=== PATIENT | female | born 1990 | race Caucasian/White ===

== ENCOUNTER 2017-04-26 13:04 | Inpatient (IN) | payer BC ==
[2017-04-26] VITALS (30 sets, daily range): BP systolic 118–154; BP diastolic 72–98; PULSE 65–109; TEMP 98–99.8
[~2017-04-26] VITALS: Ht 162.6 cm; Wt 77.7 kg
[2017-04-26] MEDS ORDERED: PRENATAL MVI PO (13:26)
[2017-04-26 14:53] LABS: BASO % 0.3 % (0.0-2.0); EOS % 0.3 % (0-4.0); GRAN # 9.1 (1.4-6.5); GRAN % 78.5 % (42.2-75.2); HEMOGLOBIN 12.3 g/dl (12.5-16.0); LYMPH # 1.7 (1.2-3.4); LYMPH % 14.5 % (20.0-51.0); MEAN CELL VOLUME 98 fl (80.0-100.0); MEAN CORPUSCULAR HEMOGLOBIN 34 pg (27.0-31.0); MEAN CORPUSCULAR HGB CONC 35 g/dl (33.0-37.0); MEAN PLATELET VOLUME 11.7 fl (7.4-10.4); MONO # 0.7 (0.1-0.6); PLATELET COUNT 161 K/mm3 (130-400); RED BLOOD COUNT 3.63 M/mm3 (4.10-5.30); REDCELL DISTRIBUTION WIDTH-CV 11.9 % (11.5-14.5); WHITE BLOOD COUNT 11.5 K/mm3 (4.8-10.8)
[2017-04-26 15:00] LABS: HEMATOCRIT 35.5 % (37.0-47.0)
[2017-04-26 15:02] LABS: PH 6 (5-8); SQUAMOUS EPITHELIAL 0-2 /hpf; URINE APPEARANCE Clear; URINE BACTERIA None Seen /hpf; URINE BILIRUBIN Negative (NEGATIVE); URINE BLOOD 2+ (NEGATIVE); URINE COLOR Yellow; URINE GLUCOSE Negative (NEGATIVE); URINE KETONE 1+ (NEGATIVE); URINE RBC 0-2 /hpf; URINE UROBILINOGEN Negative (NEGATIVE); URINE WBC 0-2 /hpf
[2017-04-26 15:11] LABS: ADJUSTED CALCIUM 9.2 mg/dL (8.4-10.2); ALBUMIN 3.5 gm/dL (3.5-5.0); BILIRUBIN,TOTAL 0.4 mg/dL (0.0-1.0); CALCIUM 8.8 mg/dL (8.4-10.2); CREATININE, serum 0.77 mg/dL (0.52-1.25); POTASSIUM 3.5 mmol/L (3.4-5.0); TOTAL PROTEIN 6.8 gm/dL (6.4-8.2)
[2017-04-27] VITALS (15 sets, daily range): BP systolic 104–144; BP diastolic 52–91; PULSE 99–150; TEMP 97.5–98.8
[2017-04-27 00:31] LABS: UMBILICAL ARTERY ABG PCO2 47.7 mmHg (30-65); UMBILICAL ARTERY ABG PO2 18.8 mmHg (50-75)
[2017-04-27 00:31] LABS: UMBILICAL VEIN ABG HCO3 22.3 meq/L (22-28); UMBILICAL VEIN ABG PCO2 44.5 mmHg (30-65); UMBILICAL VEIN ABG PO2 21.4 mmHg; UMBILICAL VEIN ABG pH 7.32 (7.25-7.35)
[2017-04-27 00:33] LABS: UMBILICAL ARTERY ABG pH 7.26 (7.28-7.45)
[2017-04-28 07:28] LABS: HEMATOCRIT 21.1 % (37.0-47.0); HEMOGLOBIN 7.2 g/dl (12.5-16.0)
[2017-04-28 07:37] VITALS: BP 123/80; PULSE 100; TEMP 97.6
[2017-04-28] MEDS ORDERED: PERCOCET 325 MG1 TA2 PO (08:24)
[2017-04-28] MEDS ORDERED: MOTRIN 800800 MG/TAB PO (08:24)
== END 2017-04-28 12:30 | disposition home or self-care (01) | DRG 775 ==
LOC: LDRO 13:04 → LDR 15:28 → OB 04-27 07:00
PROVIDERS: Obstetrics & Gynecology
PROC: 10D07Z6 Extraction of Products of Conception, Vacuum, Via Natural or Artificial Opening (ICD-10-PCS; principal; 2017-04-26)
PROC: 0DQR0ZZ Repair Anal Sphincter, Open Approach (ICD-10-PCS; 2017-04-26)
DX: O13.4 Gestational [pregnancy-induced] hypertension without significant proteinuria, complicating childbirth (principal); D62 Acute posthemorrhagic anemia; O77.0 Labor and delivery complicated by meconium in amniotic fluid; O99.02 Anemia complicating childbirth; O76 Abnormality in fetal heart rate and rhythm complicating labor and delivery; O70.21 Third degree perineal laceration during delivery, IIIa; Z3A.39 39 weeks gestation of pregnancy; Z37.0 Single live birth
CPT/HCPCS: J0694; J2590; J2795; J7120